=== PATIENT | male | born 1965 | race African-American/Black ===

== ENCOUNTER 2018-10-30 15:02 | Emergency (ER) | payer SELFPAY ==
[2018-10-30] MEDS ORDERED: Sodium Chloride 0.9% 1,000 ML ONE ×2 (15:17→16:36)
[2018-10-30 15:28] LABS: #Basophils 0.1 thou/uL (0.0-0.2); #Lymphocytes 1.3 thou/uL (1.20-3.40); #Monocytes 0.9 thou/uL (0.11-0.59); #Neutrophils 5.6 thou/uL (1.40-6.50); %Basophils 0.9 % (0.0-1.0); %Eosinophils 0.5 % (0.0-10.0); %Lymphocytes 16.4 % (21.0-51.0); %Monocytes 11.2 % (0.0-10.0); Hemoglobin 13.8 g/dL (14.0-18.0); Mean Corpuscular HGB CONC 31.5 g/dL (32.0-36.0); Mean Corpuscular Volume 92.1 fL (78.0-98.0); Mean Platelet Volume 7.7 fL (7.4-10.4); Platelet Count 355 thou/uL (130-400); RBC Distribution Width 12.7 % (11.5-14.5); Red Blood Cell (RBC) Count 4.76 mill/uL (4.70-6.10); White Blood Cell (WBC) Count 7.9 thou/uL (4.8-10.8)
[2018-10-30 15:36] LABS: Lactic Acid 1.2 mmol/L (0.5-2.2)
[2018-10-30 15:44] LABS: ALT (SGPT) 42 U/L (8-55); AST (SGOT) 23 U/L (5-34); Albumin 4.1 g/dL (3.5-5.0); Alkaline Phosphatase 82 U/L (40-150); Anion Gap 18 mmol/L (10-20); BUN (Urea Nitrogen) 18 mg/dL (8.4-25.7); Bilirubin, Total 0.5 mg/dL (0.2-1.2); Calc. Creatinine Clearance 0 mL/min (70-130); Calcium 10.2 mg/dL (7.8-10.44); Carbon Dioxide 26 mmol/L (22-29); Chloride 97 mmol/L (98-107); Estimated GFR-MDRD 82; Globulin 3.6 g/dL (2.4-3.5); Glucose 534 mg/dL (70-105); Lipase 72 U/L (8-78); Magnesium 2.1 mg/dL (1.6-2.6); Potassium 4.6 mmol/L (3.5-5.1); Protein, Total 7.7 g/dL (6.0-8.3); Sodium 136 mmol/L (136-145)
[2018-10-30 15:57] LABS: Bilirubin Negative (Negative); Blood, Urine Negative (Negative); Clarity Clear (Clear); Glucose, Urine (Dipstick) >=1000 mg/dL (Negative); Leukocyte Negative (Negative); Nitrite Negative (Negative); Protein, Urine (Dipstick) Negative (Neg-Trace); Urobilinogen 0.2 mg/dL (0.2-1.0); pH, Urine 5.5 (5.0-9.0)
[2018-10-30 16:00] LABS: Specific Gravity, Urine 1.034 (1.002-1.036)
[2018-10-30 16:25] LABS: Base Excess-Venous 2.5 mmol/L (-2.0 to 3.0); Bicarbonate (HCO3v) 29.3 mmol/L (22.0-28.0); Chloride 103 mmol/L (98-107); Hemoglobin - Calc 14.2 g/dL (14.0-18.0); O2 Tension (PvO2) 34.9 mmHg (35.0-45.0); Potassium 4.4 mmol/L (3.5-5.1); Sodium 137 mmol/L (138-145); T. Carbon Dioxide 30.9 mmol/L (22.0-28.0); pH (Venous) 7.351 (7.320-7.430); vO2 Saturation-calc 62.8 % (60.0-85.0)
[2018-10-30] MEDS ORDERED: Insulin Regular 300 UNITS/3 ML VIAL ONE (16:41)
== END 2018-10-30 18:32 | disposition home or self-care (01) ==
LOC: NAV ERS 15:02
DX: E11.65 Type 2 diabetes mellitus with hyperglycemia (principal); E86.0 Dehydration; I10 Essential (primary) hypertension
CPT/HCPCS: 36416; 80053; 81003; 82010; 82330; 82803; 83605; 83690; 83735; 84484; 85025; 93005; 94760; 96374; 36415-59; J1815; J7050

== ENCOUNTER 2021-02-18 21:21 | Emergency (ER) | payer SELFPAY ==
[~2021-02-18 21:21] MED LIST: Iopamidol 370 76% 100 ML VIAL ONE; Metoclopramide HCl 10 MG/2 ML VIAL ONE; Ondansetron PF 4 MG/2 ML Vial ONE; Sodium Chloride 0.9% 1,000 ML BAG ONE; cloNIDine 0.1 MG TAB ONE
[2021-02-18 21:48] LABS: #Lymphocytes 1.2 thou/uL (1.20-3.40); #Monocytes 0.4 thou/uL (0.11-0.59); #Neutrophils 4.4 thou/uL (1.40-6.50); %Basophils 0.4 % (0.0-1.0); %Eosinophils 0.3 % (0.0-10.0); %Lymphocytes 19.7 % (21.0-51.0); %Monocytes 6.1 % (0.0-10.0); %Neutrophils 73.4 % (42.0-75.0); Hemoglobin 12.3 g/dL (14.0-18.0); Mean Corpuscular HGB CONC 30.7 g/dL (32.0-36.0); Mean Corpuscular Hemoglobin 29.6 pg (27.0-31.0); Mean Corpuscular Volume 96.5 fL (78.0-98.0); Mean Platelet Volume 7.5 fL (7.4-10.4); Platelet Count 333 thou/uL (130-400); Red Blood Cell (RBC) Count 4.17 mill/uL (4.70-6.10); White Blood Cell (WBC) Count 5.9 thou/uL (4.8-10.8)
[2021-02-18 22:07] LABS: ALT (SGPT) 33 U/L (8-55); AST (SGOT) 23 U/L (5-34); Albumin 3.9 g/dL (3.5-5.0); Alkaline Phosphatase 70 U/L (40-110); Anion Gap 15 mmol/L (10-20); BUN (Urea Nitrogen) 24 mg/dL (8.4-25.7); Bilirubin, Total 0.7 mg/dL (0.2-1.2); Calc. Creatinine Clearance 0 mL/min (70-130); Calcium 10.1 mg/dL (7.8-10.44); Carbon Dioxide 24 mmol/L (22-29); Chloride 104 mmol/L (98-107); Globulin 3.4 g/dL (2.4-3.5); Glucose 267 mg/dL (70-105); Lipase 22 U/L (8-78); Potassium 4.2 mmol/L (3.5-5.1); Protein, Total 7.3 g/dL (6.0-8.3); Sodium 139 mmol/L (136-145)
[2021-02-18 22:09] LABS: Bilirubin Negative (Negative); Blood, Urine Small (Negative); Clarity Clear (Clear); Glucose, Urine (Dipstick) >=1000 mg/dL (Negative); Ketone, Urine Negative (Negative); Leukocyte Negative (Negative); Nitrite Negative (Negative); Protein, Urine (Dipstick) 100 mg/dL (Neg-Trace); Specific Gravity, Urine 1.025 (1.005-1.030); Urobilinogen 0.2 mg/dL (Less than 2); pH, Urine 5.5 (5.0-9.0)
[2021-02-18 22:13] LABS: Bacteria/HPF Rare-Few HPF (None Seen); RBC/HPF 0-3 HPF (0-3); Squamous Epithelial 0-3 HPF (0-3); WBC/HPF 0-3 HPF (0-3)
[2021-02-18 22:15] LABS: Amphetamine Not Detected (NotDetected); Barbiturates Screen Not Detected (NotDetected); Benzodiazepine Screen Not Detected (NotDetected); Cocaine Metabolite Screen Detected (NotDetected); Medtox Control Line Valid? VALID (VALID); Methadone Not Detected (NotDetected); Methamphetamine Not Detected (NotDetected); Opiate Screen Not Detected (NotDetected); Oxycodone Screen Not Detected (NotDetected); Phencyclidine (PCP) Not Detected (NotDetected); THC/Cannabinoid Screen Not Detected (NotDetected); Tricyclic Screen Not Detected (NotDetected)
== END 2021-02-19 00:55 | disposition home or self-care (01) ==
LOC: NAV ERS 21:21
DX: R11.2 Nausea with vomiting, unspecified (principal); I10 Essential (primary) hypertension; E11.9 Type 2 diabetes mellitus without complications; E78.00 Pure hypercholesterolemia, unspecified
CPT/HCPCS: 74177; 80053; 80306; 81003; 81015; 82274; 83605; 83630; 83690; 85025; 87045; 87046; 87427; 87449; 96365; 96375; 96376; J2405; J2765; J7050; Q9967

== ENCOUNTER 2021-02-24 20:56 | Emergency (ER) | payer SELFPAY ==
[2021-02-24] MEDS ORDERED: cloNIDine 0.2 MG TAB ONE (21:22)
[2021-02-24] MEDS ORDERED: Metoclopramide HCl 10 MG/2 ML VIAL ONE (21:24)
[2021-02-24 21:40] LABS: #Basophils 0.1 thou/uL (0.0-0.2); #Lymphocytes 1.5 thou/uL (1.20-3.40); #Monocytes 0.5 thou/uL (0.11-0.59); #Neutrophils 6.4 thou/uL (1.40-6.50); %Basophils 1.2 % (0.0-1.0); %Eosinophils 0.2 % (0.0-10.0); %Lymphocytes 17.6 % (21.0-51.0); %Monocytes 5.8 % (0.0-10.0); %Neutrophils 75.4 % (42.0-75.0); Hemoglobin 12.8 g/dL (14.0-18.0); Mean Corpuscular HGB CONC 31.3 g/dL (32.0-36.0); Mean Corpuscular Volume 95.8 fL (78.0-98.0); Mean Platelet Volume 8.5 fL (7.4-10.4); Platelet Count 376 thou/uL (130-400); Red Blood Cell (RBC) Count 4.28 mill/uL (4.70-6.10); White Blood Cell (WBC) Count 8.4 thou/uL (4.8-10.8)
[2021-02-24 21:43] LABS: Bilirubin Negative (Negative); Blood, Urine Trace (Negative); Clarity Clear (Clear); Glucose, Urine (Dipstick) Negative (Negative); Ketone, Urine Negative (Negative); Leukocyte Negative (Negative); Nitrite Negative (Negative); Protein, Urine (Dipstick) > or equal to 300 mg/dL (Neg-Trace); Specific Gravity, Urine 1.025 (1.005-1.030); Urobilinogen 0.2 mg/dL (Less than 2)
[2021-02-24 21:50] LABS: RBC/HPF 0-3 HPF (0-3); Squamous Epithelial 0-3 HPF (0-3)
[2021-02-24 21:52] LABS: ALT (SGPT) 24 U/L (8-55); AST (SGOT) 19 U/L (5-34); Albumin 3.7 g/dL (3.5-5.0); Alkaline Phosphatase 65 U/L (40-110); Anion Gap 14 mmol/L (10-20); BUN (Urea Nitrogen) 23 mg/dL (8.4-25.7); Bilirubin, Total 0.4 mg/dL (0.2-1.2); Calc. Creatinine Clearance 0 mL/min (70-130); Calcium 9.8 mg/dL (7.8-10.44); Carbon Dioxide 27 mmol/L (22-29); Chloride 102 mmol/L (98-107); Globulin 3.7 g/dL (2.4-3.5); Glucose 161 mg/dL (70-105); Lipase 24 U/L (8-78); Potassium 3.9 mmol/L (3.5-5.1); Protein, Total 7.4 g/dL (6.0-8.3); Sodium 139 mmol/L (136-145)
[2021-02-24 21:53] LABS: Amphetamine Not Detected (NotDetected); Barbiturates Screen Not Detected (NotDetected); Benzodiazepine Screen Not Detected (NotDetected); Cocaine Metabolite Screen Detected (NotDetected); Medtox Control Line Valid? VALID (VALID); Methadone Not Detected (NotDetected); Methamphetamine Not Detected (NotDetected); Opiate Screen Not Detected (NotDetected); Oxycodone Screen Not Detected (NotDetected); Phencyclidine (PCP) Not Detected (NotDetected); THC/Cannabinoid Screen Not Detected (NotDetected); Tricyclic Screen Not Detected (NotDetected)
[2021-02-24] MEDS ORDERED: Metoprolol Tartrate 50 MG TAB ONE (22:04)
== END 2021-02-24 22:42 | disposition home or self-care (01) ==
LOC: NAV ERS 20:56
DX: R11.2 Nausea with vomiting, unspecified (principal); F14.10 Cocaine abuse, uncomplicated; I10 Essential (primary) hypertension; E11.9 Type 2 diabetes mellitus without complications; E78.00 Pure hypercholesterolemia, unspecified; Z79.899 Other long term (current) drug therapy; Z79.4 Long term (current) use of insulin
CPT/HCPCS: 36415; 80053; 80306; 81003; 81015; 83690; 85025; 96372; 99284; J2765

== ENCOUNTER 2021-02-28 19:24 | Emergency (ER) | payer SELFPAY ==
[2021-02-28] MEDS ORDERED: Sodium Chloride 0.9% 1,000 ML ONE ×4 (20:15→23:26)
[2021-02-28] MEDS ORDERED: Pantoprazole 40 MG VIAL ONE (20:15)
[2021-02-28] MEDS ORDERED: Ondansetron PF 4 MG/2 ML Vial ONE (20:15)
[2021-02-28 20:21] LABS: #Lymphocytes 1.3 thou/uL (1.20-3.40); #Monocytes 0.3 thou/uL (0.11-0.59); #Neutrophils 6.6 thou/uL (1.40-6.50); %Basophils 0.5 % (0.0-1.0); %Eosinophils 0.2 % (0.0-10.0); %Lymphocytes 15.7 % (21.0-51.0); %Monocytes 4.2 % (0.0-10.0); %Neutrophils 79.5 % (42.0-75.0); Hemoglobin 13.1 g/dL (14.0-18.0); Mean Corpuscular HGB CONC 30.8 g/dL (32.0-36.0); Mean Corpuscular Hemoglobin 29.8 pg (27.0-31.0); Mean Corpuscular Volume 96.7 fL (78.0-98.0); Mean Platelet Volume 8.5 fL (7.4-10.4); Platelet Count 397 thou/uL (130-400); RBC Distribution Width 13.8 % (11.5-14.5); Red Blood Cell (RBC) Count 4.38 mill/uL (4.70-6.10); White Blood Cell (WBC) Count 8.3 thou/uL (4.8-10.8)
[2021-02-28 20:30] LABS: Prothrombin Time 13.5 sec (12.0-14.7)
[2021-02-28 20:31] LABS: Base Excess-Venous 1.9 mmol/L (-2.0 to 3.0); Bicarbonate (HCO3v) 27.3 mmol/L (22.0-28.0); CO2 Tension (PvCO2) 44.3 mmHg (42.0-51.0); Calcium, Ionized 1.22 mmol/L (1.15-1.33); Chloride 101 mmol/L (98-107); Hemoglobin - Calc 14.8 g/dL (14.0-18.0); PTT 29.9 sec (22.9-36.1); Potassium 4.3 mmol/L (3.5-5.1); Sodium 137 mmol/L (138-145); T. Carbon Dioxide 28.7 mmol/L (22.0-28.0); vO2 Saturation-calc 98.3 % (60.0-85.0)
[2021-02-28 20:38] LABS: ALT (SGPT) 48 U/L (8-55); AST (SGOT) 26 U/L (5-34); Albumin 4.2 g/dL (3.5-5.0); Alkaline Phosphatase 73 U/L (40-110); Anion Gap 19 mmol/L (10-20); BUN (Urea Nitrogen) 23 mg/dL (8.4-25.7); Bilirubin, Total 0.7 mg/dL (0.2-1.2); Calc. Creatinine Clearance 0 mL/min (70-130); Calcium 10.1 mg/dL (7.8-10.44); Carbon Dioxide 25 mmol/L (22-29); Chloride 98 mmol/L (98-107); Globulin 3.5 g/dL (2.4-3.5); Glucose 399 mg/dL (70-105); Lipase 22 U/L (8-78); Potassium 4.5 mmol/L (3.5-5.1); Protein, Total 7.7 g/dL (6.0-8.3); Sodium 137 mmol/L (136-145)
[2021-02-28 20:51] LABS: Bilirubin Negative (Negative); Blood, Urine Moderate (Negative); Clarity Clear (Clear); Glucose, Urine (Dipstick) 500 mg/dL (Negative); Ketone, Urine 15 mg/dL (Negative); Leukocyte Negative (Negative); Nitrite Negative (Negative); Protein, Urine (Dipstick) 100 mg/dL (Neg-Trace); Urobilinogen 0.2 mg/dL (Less than 2); pH, Urine 5.5 (5.0-9.0)
[2021-02-28 21:02] LABS: RBC/HPF 0-3 HPF (0-3); Squamous Epithelial 0-3 HPF (0-3)
[2021-02-28 21:03] LABS: Amphetamine Not Detected (NotDetected); Barbiturates Screen Not Detected (NotDetected); Benzodiazepine Screen Not Detected (NotDetected); Cocaine Metabolite Screen Detected (NotDetected); Medtox Control Line Valid? VALID (VALID); Methadone Not Detected (NotDetected); Methamphetamine Not Detected (NotDetected); Opiate Screen Not Detected (NotDetected); Oxycodone Screen Not Detected (NotDetected); Phencyclidine (PCP) Not Detected (NotDetected); THC/Cannabinoid Screen Not Detected (NotDetected); Tricyclic Screen Not Detected (NotDetected)
[2021-02-28] MEDS ORDERED: Insulin Regular 300 UNITS/3 ML VIAL ONE (21:07)
[2021-02-28] MEDS ORDERED: Lantus 1000 UNITS/10 ML VIAL SC SCH (21:15)
== END 2021-03-01 07:23 | disposition home or self-care (01) ==
LOC: NAV ERS 19:24
DX: E11.65 Type 2 diabetes mellitus with hyperglycemia (principal); R11.2 Nausea with vomiting, unspecified; I10 Essential (primary) hypertension; E78.00 Pure hypercholesterolemia, unspecified; Z79.899 Other long term (current) drug therapy; Z79.4 Long term (current) use of insulin
CPT/HCPCS: 36416; 71045; 80053; 80306; 81003; 81015; 82010; 82330; 82803; 83605; 83690; 84484; 85014; 85025; 85610; 85730; 93005; 96374; 96375; C9113; J1815; J2405; J7050

== ENCOUNTER 2021-03-03 22:16 | Emergency (ER) | payer SELFPAY ==
[~2021-03-03 22:16] MED LIST changes: -Metoclopramide HCl 10 MG/2 ML VIAL ONE; -Ondansetron PF 4 MG/2 ML Vial ONE; -Sodium Chloride 0.9% 1,000 ML BAG ONE; -cloNIDine 0.1 MG TAB ONE
[2021-03-03] MEDS ORDERED: Sodium Chloride 0.9% 1,000 ML ONE (22:37)
[2021-03-03] MEDS ORDERED: Ondansetron PF 4 MG/2 ML Vial ONE ×2 (22:37→23:14)
[2021-03-03 22:38] LABS: #Basophils 0.1 thou/uL (0.0-0.2); #Lymphocytes 1.8 thou/uL (1.20-3.40); #Neutrophils 4.4 thou/uL (1.40-6.50); %Eosinophils 0.5 % (0.0-10.0); %Lymphocytes 24.6 % (21.0-51.0); %Monocytes 13.7 % (0.0-10.0); %Neutrophils 60.2 % (42.0-75.0); Hemoglobin 12.9 g/dL (14.0-18.0); Mean Corpuscular HGB CONC 31.8 g/dL (32.0-36.0); Mean Corpuscular Volume 94.4 fL (78.0-98.0); Platelet Count 367 thou/uL (130-400); RBC Distribution Width 13.3 % (11.5-14.5); Red Blood Cell (RBC) Count 4.29 mill/uL (4.70-6.10); White Blood Cell (WBC) Count 7.3 thou/uL (4.8-10.8)
[2021-03-03 22:57] LABS: ALT (SGPT) 35 U/L (8-55); AST (SGOT) 27 U/L (5-34); Albumin 3.6 g/dL (3.5-5.0); Alkaline Phosphatase 59 U/L (40-110); BUN (Urea Nitrogen) 14 mg/dL (8.4-25.7); Bilirubin, Total 0.4 mg/dL (0.2-1.2); Calc. Creatinine Clearance 0 mL/min (70-130); Calcium 9.2 mg/dL (7.8-10.44); Carbon Dioxide 27 mmol/L (22-29); Globulin 3.5 g/dL (2.4-3.5); Glucose 150 mg/dL (70-105); Protein, Total 7.1 g/dL (6.0-8.3)
[2021-03-03 23:03] LABS: Base Excess-Venous 3.6 mmol/L (-2.0 to 3.0); Bicarbonate (HCO3v) 28.5 mmol/L (22.0-28.0); CO2 Tension (PvCO2) 43.3 mmHg (42.0-51.0); Calcium, Ionized 1.24 mmol/L (1.15-1.33); Chloride 99 mmol/L (98-107); Hemoglobin - Calc 14.4 g/dL (14.0-18.0); Potassium 3.4 mmol/L (3.5-5.1); Sodium 139 mmol/L (138-145); T. Carbon Dioxide 29.9 mmol/L (22.0-28.0); vO2 Saturation-calc 93.3 % (60.0-85.0)
[2021-03-03 23:11] LABS: Chloride 99 mmol/L (98-107); Potassium 3.4 mmol/L (3.5-5.1); Sodium 135 mmol/L (136-145)
[2021-03-03 23:12] LABS: Anion Gap 12 mmol/L (10-20)
[2021-03-03] MEDS ORDERED: Morphine 4 MG/ML VIAL ONE (23:14)
[2021-03-04] MEDS ORDERED: Aspirin Chewable 81 MG TAB ONE (00:24)
[2021-03-04 01:33] LABS: Troponin I Less than 0.010 ng/mL (< 0.028)
[2021-03-04 02:24] LABS: SARS-CoV-2 NAA Rapid Test Not Detected (NotDetected)
[2021-03-04 04:53] LABS: Troponin I Less than 0.010 ng/mL (< 0.028)
[2021-03-04] MEDS ORDERED: levETIRAcetam 500 MG TAB ONE (07:45)
[2021-03-04] MEDS ORDERED: Metoclopramide HCl 10 MG TAB ONE (07:45)
[2021-03-04] MEDS ORDERED: Amlodipine 5 MG TAB ONE (07:45)
[2021-03-04] MEDS ORDERED: Hydrochlorothiazide 25 MG TAB ONE (07:45)
[2021-03-04] MEDS ORDERED: Lantus 1000 UNITS/10 ML VIAL SC SCH (08:00)
== END 2021-03-04 09:57 | disposition home or self-care (01) ==
LOC: NAV ERS 22:16
DX: R07.9 Chest pain, unspecified (principal); I10 Essential (primary) hypertension; R11.2 Nausea with vomiting, unspecified; R00.0 Tachycardia, unspecified; R10.816 Epigastric abdominal tenderness; E78.00 Pure hypercholesterolemia, unspecified; E11.43 Type 2 diabetes mellitus with diabetic autonomic (poly)neuropathy; K31.84 Gastroparesis; Z79.899 Other long term (current) drug therapy; Z79.4 Long term (current) use of insulin
CPT/HCPCS: 36415; 36416; 71045; 71275; 80053; 82010; 82330; 82803; 83605; 83690; 83880; 84484; 85025; 85379; 93005; 94760; 96374; 96375; 96376; J1815; J2270; J2405; J7050; Q9967; U0002